=== PATIENT | female | born 1985 | race American Indian/Alaskan Native ===

== ENCOUNTER 2017-12-17 09:52 | Emergency (ER) | payer BC, OTHER ==
[2017-12-17 10:18] VITALS: BP 130/90
[2017-12-17] MEDS ORDERED: MOTRIN PO ONE (12:37)
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
== END 2017-12-17 15:17 | disposition home or self-care (01) ==
LOC: ED 09:52
DX: M54.5 Low back pain (principal); M54.89 Other dorsalgia; V49.59XA Passenger injured in collision with other motor vehicles in traffic accident, initial encounter; Y93.89 Activity, other specified; Y92.89 Other specified places as the place of occurrence of the external cause; Y99.8 Other external cause status
CPT/HCPCS: 72100; 99283